=== PATIENT | male | born 1970 | race Hispanic/Latino ===

== ENCOUNTER 2019-10-24 11:04 | Outpatient (CLI) | payer BC ==
--- NOTE | 2019-10-24 13:09 | BD ---
DEXA BONE MINERAL DENSITY STUDY: HISTORY: Osteoporosis screening. COMPARISON: None. FINDINGS: Lumbar Spine: BMD (g/cm2) L1 0.651 T-Score: -3.8 -3.5 L2 0.759 T-Score: -3.0 -2.7 L3 0.758 T-Score: -3.1 -2.8 L4 0.838 T-Score: -2.3 -1.9 L1-L4 0.762 T-Score: -3.0 -2.6 Femoral Neck: 0.704 T-Score: -1.7 -0.9 Total Femur: 0.861 T-Score: -1.1 -0.8 WHO CLASSIFICATION: Osteoporosis. Impression: Osteoporosis with elevated fracture risk. POS: [facility]
== END 2019-10-24 11:05 | disposition home or self-care (01) ==
LOC: BICMAMMO 11:04
PROVIDERS: ATTEND Family Medicine
DX: Z13.820 Encounter for screening for osteoporosis (principal); S22.069A Unspecified fracture of T7-T8 vertebra, initial encounter for closed fracture; M81.0 Age-related osteoporosis without current pathological fracture
CPT/HCPCS: 77080